=== PATIENT | male | born 1935 | race Caucasian/White ===

== ENCOUNTER 2019-08-20 17:09 | Inpatient (IN) | payer OTHER ==
[~2019-08-20] VITALS: Ht 172.7 cm; Wt 77.1 kg
[2019-08-20 18:02] VITALS: BP 166/47
[2019-08-20 18:23] LABS: ABSOLUTE NEUTROPHILS 4.3 thou/uL (1.4-8.2); BASOPHILS 1.2 % (0.0-2.0); EOSINOPHILS 4.6 % (0.0-3.0); HEMATOCRIT 40.6 % (42.0-52.0); HEMOGLOBIN 13.4 gm/dL (14.0-18.0); LYMPHOCYTES 26.9 % (24.0-44.0); MCH 34.2 pg (26.0-34.0); MCV 103.6 fL (80.0-100.0); MONOCYTES 7.8 % (1.0-8.0); PLATELET COUNT 138 thou/uL (150-400); POLYS 59.5 % (36.0-66.0); RBC 3.92 mil/uL (4.50-6.00); RDW 13.7 % (10.5-14.5); WBC 7.2 thou/uL (4.0-11.0)
[2019-08-20 18:34] LABS: ANION GAP 5 mmol/L (7-16); BUN 44 mg/dL (7-18); CALCIUM 8.9 mg/dL (8.5-10.1); CHLORIDE 107 mmol/L (98-107); CO2 31 mmol/L (21-32); CREATININE 1.6 mg/dL (0.7-1.3); GLUCOSE 111 mg/dL (74-106); POTASSIUM 4.4 mmol/L (3.5-5.1); SODIUM 143 mmol/L (136-145)
[2019-08-20 18:49] LABS: ALBUMIN 3.7 g/dL (3.4-5.0); SALICYLATE < 2.8 mg/dL (2.8-20.0); SGOT 29 U/L (15-37); SGPT 41 U/L (30-65); TOTAL BILIRUBIN 0.5 mg/dL (<0.1-1.0); TOTAL PROTEIN 7.1 g/dL (6.4-8.2)
[2019-08-20 19:36] LABS: URINE BILIRUBIN NEGATIVE (Negative); URINE BLOOD TRACE (Negative); URINE CLARITY CLEAR; URINE COLOR YELLOW; URINE GLUCOSE-RANDOM* NEGATIVE (Negative); URINE KETONES NEGATIVE (Negative); URINE LEUKOCYTES-REFLEX NEGATIVE (Negative); URINE NITRITE-REFLEX NEGATIVE (Negative); URINE PROTEIN (DIPSTICK) NEGATIVE (Negative); URINE SPECIFIC GRAVITY >= 1.030 (1.005-1.035); URINE UROBILINOGEN 0.2 E.U./dl (0.2-1.0)
[2019-08-20 19:53] LABS: AMP/METHAMP Negative (Negative); BARBITURATES Negative (Negative); BENZODIAZEPINES Negative (Negative); COCAINE Negative (Negative); METHADONE Negative (Negative); OPIATES Negative (Negative); PCP Negative (Negative)
[2019-08-20 20:28] VITALS: BP 166/47
[2019-08-20] MEDS ORDERED: ELIQUIS5 MG PO (21:14)
[2019-08-20] MEDS ORDERED: CARVEDILOL12.5 MG PO (21:15)
[2019-08-20] MEDS ORDERED: ROSUVASTATIN CA20 MG PO (21:16)
[2019-08-20] MEDS ORDERED: NAMENDA 10 MG T10 MG PO (21:17)
[2019-08-20] MEDS ORDERED: ARICEPT10 M1 PO ×2 (21:18→21:26)
[2019-08-20] MEDS ORDERED: BENICAR20 MG PO ×2 (21:19→21:21)
[2019-08-20] MEDS ORDERED: FISH OIL 1,001000 M3 PO (21:23)
[2019-08-20] MEDS ORDERED: VITAMIN D-40010 MCG PO (21:25)
[2019-08-20 22:21] VITALS: BP 135/76
--- NOTE | 2019-08-20 23:07 | NUR ---
2109 NEW ADMIT HERE FROM ER FOR AGGRESSIVE BEHAVIOR TO AT HOME. PATIENT HAS ALZHEMIERS AND IS VERY CONFUSED. PATIENT DID NOT RECOGINIZE HIS TWO DAUGHTERS WHO WERE WITH HIM. PATIENT WAS FRUSTRATED AND RESTLESS WHEN HE CAME FROM THE ER DUE TO THE LENGTH OF TIME HE SPENT THERE. PATIENT DOES GET UP AND WAS WONDERING AROUND THE HALLS. HE IS REDIRECTABLE AND COOPERATIVE, VITALS SIGNS WITHIN NORMAL LIMITS, BOWEL SOUNDS Q 4 QUADRANTS, ABDOMEN SOFT, LUNGS CLEAR. WILL CONTINUE TO MONITOR PATIENT FOR SAFETY AND BEHAVIORS.
[2019-08-21 07:40] VITALS: BP 138/61
[2019-08-21 07:45] VITALS: BP 138/61
--- NOTE | 2019-08-21 07:50 | NUR ---
PT SITTING ON SIDE OF BED. PT DIDIN'T WHERE HE WAS OR HIS BIRTHDAY. PT DENIES ANY PAIN. PT LAUGHED WHEN THIS COMPUTER INFORMATION SCIENCE PROFESSOR SAID HE WAS GOING TO SEE THE DR. PT LUNGS CLEAR AND HAS A DRY COUGH. PT DENIES USING A WALKER. ENCOURAGED PT TO EAT BREAKFAST.
--- NOTE | 2019-08-21 08:20 | NUR ---
PT REFUSED TO COME OUT FOR BREAKFAST.
--- NOTE | 2019-08-21 08:23 | EKG ---
[facility] [place] [address] ELECTROCARDIOGRAM REPORT Name: SILVANA HARKINS Room #: [facility]- ADM IN M.R.#: [id number] Admission: 08/20/19 Attend Phys: Allison Siddiqui MD Discharge: Date of : 35 Report #: [id number] THIS REPORT FOR: cc: JULEE - No family physician/PCP FAM - No family physician/PCP Roger Paulino MD ~ THIS REPORT FOR: //name// [facility] ED Test Date: 2019-08-20 Test Time: 19:08:41 Pat Name: SILVANA HARKINS Department: Room: [facility] Gender: M Personal Secretary: NUNO : 1935 Requested By: Sonia Ferrera Order Number: [id number] MD: Roger Paulino Measurements Intervals [place] Rate: 67 P: UT: QRS: -52 QRSD: 121 T: 67 QT: 425 QTc: 449 Interpretive Statements Atrial fibrillation Nonspecific IVCD with LAD Compared to ECG 05/28/2002 06:29:20 Intraventricular conduction delay now present Sinus rhythm no longer present Myocardial infarct finding no longer present Myocardial infarct finding no longer present Electronically Signed On 08-21-2019 8:22:48 TRAIN STARTER by Roger Paulino [email or web address] <ELECTRONICALLY SIGNED> By: Roger Paulino MD 08/21/19821 07 07 Roger Paulino MD /EPI
--- NOTE | 2019-08-21 11:20 | NUR ---
PT IN DINING ROOM VISITING WITH DAUGHTER MAC. GAVE PT MEDS AND HE WAS CHEWING ON DEPAKOE SPRINKLES. PLACED SPRINKLES IN PUDDING AND PT TOLERATED WELL. PT HAS A WET COUGH WITHOUT PRODUCTION. PT DID COUGH WITH THIN WATER. PT DAUGHTER STATED HE HAS 8 CHILDREN WITH 7 LIVING. 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
--- NOTE | 2019-08-21 16:56 | NUR ---
SOL spoke with Francoise, Field Artillery Officer with [facility]. She said pt has resided with his , who also suffers from a neurocog. diso., at their facility for 2 years. She also said pt is on the waitlist. She believes pt needs a higher level of care; he currently is in independent living with his . She said he has had cog. issues, but within the last 30-60 days they have increased to him not remembering his and not being redirectable. SW asked about him being on the waitlist for memory care and was told that while she does not know how long the wait for pt is, it would not be as soon as his hospital discharge. I asked her if [facility] was okay with pt and his moving to another facility that has memory care, and she said definitely if that is what is best for the pt. SOL spoke with pt's daughter Fabiola who gave background info. She said that she knows that pt will need to move, but she does not know where to begin. SOL advised her that she can help with this. Fabiola and SOL tentatively schedule a family meeting via phone for 08/21 @11am. 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 She also said that pt's son Jose is the healthcare DPOA, and she will check with him to make sure that time is okay for him too. She said she will bring the DPOA doc tomorrow when she visits her father on the unit. SOL team will continue to follow pt during his stay on this unit.
--- NOTE | 2019-08-21 17:36 | NUR ---
PT WALKING AROUND AND WANTING TO FIND OUT HOW TO GET OUT OF HERE. PT NOT UNDERSTANDING THAT HE IS HERE FOR THE NIGHT.
[2019-08-21 19:41] VITALS: BP 132/67
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
[2019-08-21 23:04] VITALS: BP 132/67
--- NOTE | 2019-08-21 23:39 | NUR ---
PATIENT WAS UP WALKING AND TALKING WITH ANOTHER MALE PATIENT WHEN I CAME ON DUTY AT 1900. HE IS A/0X1. HE IS [place]. HE HAS BEEN CALM AND COOPERATIVE TONIGHT. PATIENT TOOK HIS MEDS CRUSHED IN APPLESAUCE WITHOUT INCIDENT. HIS VSS AND PHYSICAL ASSESMENT WNL. HE DENIES PAIN. PATIENT IS IN BED SLEEPING AT THIS TIME. WILL CONTINUE TO MONITOR FOR SAFETY.
--- NOTE | 2019-08-22 04:41 | NUR ---
PATIENT WALKED TO NURSE'S STATION TO CHECK THE TIME AT 0330. HE WENT BACK TO HIS ROOM AND WAS IN HIS BATHROOM AT 0430. HE IS REQUESTING MIRALAX BECAUSE HE HAS NOT HAD A BM YET TODAY. HE HAD ONE ON 08/21. HE ALSO ASKED FOR AN ATIVAN. I EXPLAINED THAT THE DOCTOR SCHEDULED THEM FOR BID AND HE SHOULD GET ONE AROUND BREAKFAST TIME. I ASKED HIM WHY HE WAS FEELING ANXIOUS. HE STATES THAT HE DOESN'T FEEL LIKE HE IS READY TO GO BACK TO THE FACILITY. HE STATES THAT HE NEEDS TO GET ANXIETY UNDER CONTROL AND HIS BOWEL ISSUES FIXED. HE IS VERY FIXATED ON HIS BOWELS. HE HAD 5 LOOSE STOOLS ON 08/20. PATIENT WENT BACK TO BED TO LAY DOWN. WILL CONTINUE TO MONITOR.
--- NOTE | 2019-08-22 04:50 | NUR ---
PATIENT HAS SLEPT THRU NIGHT SO FAR. BED IN LOW POSITION AND BED ALARM ON. CONTINUED REGULAR ROUNDING TO CHECK FOR SAFETY.
[2019-08-22 06:57] LABS: ALBUMIN 3.1 g/dL (3.4-5.0); CALCIUM 8.6 mg/dL (8.5-10.1); CREATININE 1.6 mg/dL (0.7-1.3); PHOSPHORUS 4.2 mg/dL (2.5-4.9); POTASSIUM 4.4 mmol/L (3.5-5.1)
[2019-08-22 08:09] LABS: TSH 0.801 uIU/mL (0.358-3.740)
[2019-08-22 09:09] VITALS: BP 143/67
--- NOTE | 2019-08-22 09:50 | NUR ---
ASSUMED CARE AT 0700. PT. WAS UP, DRESSED AND SITTING IN A CHAIR IN THE DINNING ROOM. MEDICATIONS WERE CRUSHED AND PUT IN APPLESAUCE. PT. TOOK THEM WITHOUT DIFFICULTY. THIS NURSE HELPED FEED HIM BREAKFAST. HE IS ATE WELL. HE CONTINUES TO BE VERY CONFUSED. HE HAS A FLAT, BLAND AFFECT. SHE
--- NOTE | 2019-08-22 09:58 | NUR ---
ASSUMED CARE AT 0700 THIS MORNING. PT. UP, DRESSED AND SITTING IN THE DINING ROOM. HIS MEDICATIONS WERE CRUSHED AND PLACED IN APPLESAUCE. HE READILY ATE THIS WITHOUT PROBLEMS. THIS RN HELPED FEED THE PATIENT AT BREAKFAST. HE ATE WILL. AFTER BREAKFAST, HE WAS UP WANDERING THE HALLS. AND THEN SAT DOWN IN THE DINING ROOM. HE INTERACTS UPON APPROACH. HE IS VERY CONFUSED WITH A FLAT, BLAND AFFECT.
[2019-08-22 10:03] VITALS: BP 143/67
[2019-08-22 16:48] VITALS: BP 138/53
--- NOTE | 2019-08-22 17:39 | NUR ---
SOL spoke with Mally who gave her Jose Dickey, pt's son and healthcare DPOA, phone number for pt's psych doctor to contact him at [phone]. She also mentioned that have picked a place for pt and is deciding between two [place] locations. SOL saw Mally when she visited with her father. She said she brought the DPOA doc. SOL reviewed it and saw Jose is healthcare DPOA and Mally is financial DPOA. She said she and Jose will be talking this evening to decide which [facility]. SOL asked that they leave their choice on her vm this evening so she can contact [facility] in the morning. Mally is hoping for pt to be released by Monday. SOL team will continue to follow pt during his stay on this unit.
[2019-08-22 19:36] VITALS: BP 106/58
[2019-08-22 23:20] VITALS: BP 106/58
--- NOTE | 2019-08-23 01:42 | NUR ---
Pt. in bed at start of shift. Pt. was using curse words when this nurse turned room light to do assessment and given medication. Pt. refused medications x 2 and then finally accepted medications crushed and in applesauce. Pt. swallowed thin liquids after medications and no coughing or choking was noted after swallowing. Pt denies pain and no signs or symptoms of pain were noted. No s/s/ of distress
--- NOTE | 2019-08-23 07:29 | NUR ---
Jose has been to the nursing station several times since 0700 asking about breakfast. He has been informed that breakfast will be here at 0800. He accepted this information, but then would forget and return asking about food.
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
[2019-08-23 08:40] VITALS: BP 142/83
[2019-08-23 09:26] VITALS: BP 142/83
--- NOTE | 2019-08-23 11:17 | NUR ---
ADM TYLENOL 325MG 2 TABS FOR PAIN TO NECK AND BACK.
--- NOTE | 2019-08-23 11:17 | NUR ---
ADM TYLENOL 325MG 2 TABS CRUSHED IN ICE CREAM. DAUGHTER AND IS HERE TO VISIT. PT COMPLAINED OF PAIN TO NECK AND SHOULDERS. PT SLUMPED WITH HEAD DOWN. PT STATED HE HAS SOME PAIN THAT WAS NOT SEVERE. PT HAS TREMORS TO HANDS.
--- NOTE | 2019-08-23 13:39 | NUR ---
SOL and pt's psych doctor contacted Jose Dickey. Jose expressed to the psych doctor that he would like pt to d/c today or tomorrow. The psych doctor explained that pt's Depakote levels will not be back until Friday 08/25 and there is no guarantee that his levels will be adjusted, so he is uncomfortable with discharge before then. He also explained that it is not typical for a discharge to occur during the weekend because many facilities prefer not to do so. After much conversation between the two, the psych doctor explained that if pt's discharges before the Depakote level is confirmed to be a good one, that he will discharge AMA. Jose became upset. SOL spent time with Jose and provided supportive listening on his frustrations. SOL asked Jose, after he expressed his concerns, how he would like her to proceed; would he like pt to d/c or would he prefer pt to stay until after those levels have come back. At that time he was unsure and still upset about his and pt's psych doctor's exchange. SOL suggested he call back when he was more calm and able to process everything. He agreed. SOL provided an update to La with [facility]. She mentioned that they do not like to accept weekend discharges but sometimes accomodate. SOL asked her what she should send to the facility, and she said a referral packet. SOL faxed a referral packet to [phone]. SOL received another call from Jose who apologized for the exchange and said he was not upset with SOL, but that he has contacted administration about the exchange with pt's psych doctor. SOL provided an update to her [facility] director and told her she would keep her updated on pt's status. SOL received a call from La suggesting that pt come to their facility skilled memory care. She said they could draw pt's Depakote blood levels there. She asked if psych doctor would be okay with that scenario. SOL updated pt's psych doc; SOL and psych doc contacted La. Psych doc said he is okay with discharging pt, but it would have to be AMA because he will not be able to monitor the situation, and his advice is for pt to stay long enough for the Depakote levels to be read; just because there is a reading to occur does not mean the levels will be correct. La said she understood and that she will talk with pt's family and ask what they would like to do. Psych doctor asked how they would like transportation to occur if the family does decide to discharge AMA. She said they can provide transportation. SOL asked if 1500 would tentatively be okay so she can prepare the nursing staff. She said yes. SOL updated pt's nursing staff and asked them to prepare for pt's discharge. SOL also gave pt's nurse the AMA form to complete. SOL received a call from La stating that she was at the hospital to do an assessment for pt. SOL said that was okay and directed her how to get to the unit. La met with pt and said that everything was good to go. She will set up transportation for 1500 for pt. SOL provided this update to pt's GRISELDA Garcia. He asked if this was AMA. SOL explained it would be. He was upset that was the decision. SOL received a call from La stating that transportation had been set up for 1600. SOL team will continue to follow pt during his stay on this unit. [facility] [address] [place] [address] [phone]
--- NOTE | 2019-08-23 15:30 | NUR ---
TOOK PT TO ROOM AND PT USING BATHROOM. PT HAD MED SIZE BM THAT WAS SOFT. PT TRYING TO PULL UP PANTS WITHOUT NURSE FINISH WIPING. PT SEEMS LIKE HE NEEDED TO HAVE SOME MORE STOOL. PT DID ALLOW NURSE TO WIPE HIM. PT THEN SAT ON HIS BED. PT GOING TO D/C AROUND 4 PM. GOT PT SOME SHOES AND SOCKS. PT ABLE TO PUT ON HIS SOCKS. PT NEEDED ASSISTANCE WITH SHOES. PT WALKED BACK TO DINING ROOM AND SITTING IN RECLINER WAITING FOR TRANSPORTATION.
[2019-08-23 17:12] VITALS: BP 131/53
--- NOTE | 2019-08-23 18:09 | NUR ---
SOL contacted La at 1704 to inform her that no one has picked pt up. No answer. Lft msg. SOL called a couple min. later, no answer. SOL contacted [facility] and asked about transportation. She was told by the plate finisher that they had no record of anyone coming in [facility]. Transportation Dispatch Manager asked if she would like La's cell. SOL told her she already had it. SOL contacted Jose who said he had no idea what was going on but he will follow-up. At 1756 Sol still had not received an update so she contacted La again. No answer. Lft msg. SOL contacted Jose again who said that he received word from [facility] that someone will be there at 1800. At 1810. SOL contacted La 2x. No answer. Sol contacted Jose who said La is not answering for him either. He gave SOL another number for La which is [phone] At 1817 transportation for pt arrived. SOL contacted Jose and provided an update. No other needs for SOL team to address at this time.
--- NOTE | 2019-08-23 18:20 | NUR ---
PT LEFT VIA W/C VAN. SW CALLED SON AND ALSO FACILITY ABOUT APPROXIMATE TIME OF PICK-UP. PT LEFT IN STABLE CONDITION AND TOOK 5 PM MEDS.
[2019-08-23 22:06] LABS: SYPHILIS AB Non Reactive (Non Reactive)
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
== END 2019-08-23 18:20 | disposition left against medical advice (07) | DRG 57 ==
LOC: ER 17:09 → SBH 20:21 → EROBS 20:21 → SBH 20:28
PROVIDERS: Hospitalist; Physician Assistant; ADMIT Psychiatry & Neurology Psychiatry
DX: G30.9 Alzheimer's disease, unspecified (principal); F02.80 Dementia in other diseases classified elsewhere, unspecified severity, without behavioral disturbance, psychotic disturbance, mood disturbance, and anxiety; N17.9 Acute kidney failure, unspecified; E44.0 Moderate protein-calorie malnutrition; E78.5 Hyperlipidemia, unspecified; E78.00 Pure hypercholesterolemia, unspecified; D75.89 Other specified diseases of blood and blood-forming organs; I48.91 Unspecified atrial fibrillation; I73.9 Peripheral vascular disease, unspecified; I25.10 Atherosclerotic heart disease of native coronary artery without angina pectoris; I10 Essential (primary) hypertension; Z68.25 Body mass index [BMI] 25.0-25.9, adult; Z79.01 Long term (current) use of anticoagulants; Z79.899 Other long term (current) drug therapy
CPT/HCPCS: 10880